=== PATIENT | male | born 1950 | race Caucasian/White ===

== ENCOUNTER 2018-09-02 18:41 | Emergency (ER) | payer MEDICARE, BC ==
--- NOTE | 2018-09-02 19:00 | Emergency Department Record ---
History of Present Illness - General Chief Complaint: Fall Injury Stated Complaint: FALL INJURY Time Seen by Provider: 09/02/18 18:53 Source: Family Mode of Arrival: Wheelchair Limitations: No limitations - History of Present Illness Initial Comments: 67 yo male presents to ED for evaluation following falls x 2 today and generalized weakness. 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 Patient is also recovering from c. diff colitis. Family reports that the patient was released 2 weeks ago from [facility] following hospitalization and had been doing well until this morning. Family also reports garbled speech this morning that has since resolved. MD Complaint: Fall Onset/Timin -: Days(s) Fall From: Standing Fall Witnessed: No Place Fall Occurred: Home Loss of Consciousness: Unsure Prolonged Down Time?: No - Lisseth Coma Scale Eye Response: (4) Open spontaneously Motor Response: (6) Obeys commands Verbal Response: (5) Oriented Lisseth Total: 15 - Related Data Allergies Allergy/AdvReac Type Severity Reaction Status Date / Time Penicillins Allergy ANAPHYLAXIS Verified 09/02/18 19:11 Review of Systems Constitutional: Reports: Malaise, Weakness. Denies: Chills, Fever, Night sweats Eyes: Denies: Eye discharge, Eye pain ENT: Denies: Congestion, Ear pain, Epistaxis Respiratory: Denies: Cough, Dyspnea Cardiovascular: Denies: Chest pain, Dyspnea on exertion Endocrine: Reports: Fatigue. Denies: Heat or cold intolerance Gastrointestinal: Denies: Abdominal pain, Vomiting Genitourinary: Denies: Incontinence, Retention Musculoskeletal: Denies: Arthralgia, Back pain, Gout, Joint swelling Skin: Denies: Bruising, Change in color Neurological: Denies: Headache Psychiatric: Denies: Anxiety Hematological/Lymphatic: Denies: Anemia, Blood Clots Physical Exam - General General Appearance: Alert, Oriented x3, Cooperative, Moderate distress ( chronically ill-appearing on examination) - Head Head exam: Atraumatic, Normocephalic, Normal inspection Head exam detail: negative: Abrasion, Contusion, Mckeon's sign, General tenderness, Hematoma, Laceration - Eye Eye exam: Normal appearance. negative: Conjunctival injection, Periorbital swelling, Periorbital tenderness, Scleral icterus - ENT Ear exam: negative: Auricular hematoma, Auricular trauma Nasal Exam: negative: Active bleeding, Discharge, Dried blood, Foreign body Mouth exam: negative: Drooling, Laceration, Muffled voice, Tongue elevation - Neck Neck exam: Normal inspection. negative: Tenderness - Respiratory Respiratory exam: Normal lung sounds bilaterally. negative: Respiratory distress, Rhonchi, Stridor, Wheezes - Cardiovascular Cardiovascular Exam: Regular rate, Normal rhythm, Normal heart sounds - GI/Abdominal GI/Abdominal exam: Soft. negative: Rebound, Rigid, Tenderness - Rectal Rectal exam: Deferred - exam: Deferred - Extremities Extremities exam: Other (Abrasion right knee). negative: Calf tenderness, Pedal edema, Tenderness - Back Back exam: Denies: CVA tenderness (R), CVA tenderness (L) - Neurological Neurological exam: Alert, Oriented X3, Other (Elementary Math Tutor strength 5/5 and symmetric bilaterally, dorsiflexion 5/5 and symmetric without pain symptoms, no clinical signs for CVA on examination.). negative: Motor sensory deficit - Psychiatric Psychiatric exam: Normal affect, Normal mood - Skin Skin exam: Normal color Course - Reevaluation(s) Reevaluation #1: 09/02/18 19:51 Laboratory studies reviewed and are grossly unremarkable for an acute process. Patient currently in imaging. EKG: NSR 59 Normal axis, normal intervals No acute ST-T wave changes Reevaluation #2: 09/02/18 20:00 Patient is back from radiology at this time, speech is now garbled, patient appears more delayed. Patient does follow commands however, no evidence for seizure on examination. Elementary Math Tutor strength on re-examination 4/5 and symmetric bilaterally UEs, EOMs intact, however speech is affected. Patient is NOT a tPA candidate based on his current brain lesion history. Reevaluation #3: 09/02/18 20:04 CT Brain: Encephalomalacia front white matter with area of isodensity, cannot exclude re- occurence Post-craniotomy changes left frontal CT Cervical Spine: Multi-level DDD NO acute traumatic injury identified. CT Chest w/o contrast Mild pleural effusions bilaterally No pneumothorax Mild RLL atelectasis vs. infiltrate. CT Abdomen and Pelvis: No acute traumatic injury Right knee: STS, no acute fracture or dislocation present. Reevaluation #4: 09/02/18 20:22 Case was discussed with Dr. Acosta ([facility]) Reevaluation #5: 09/02/18 20:41 While awaiting EMD arrival, patient had a witnessed seizure lasting approximately 70 seconds, Ativan ordered to infuse. contacted for an updated as well. Seizure precautions instituted. No IV Keppra available. 09/02/18 21:05 Decadron 10 mg IV ordered for possible re-occurrence of glioblastoma with possible edema. Awaiting EMS. Patient is drowsy, easily awakens to first name, opens eyes, follows commands. 09/02/18 21:11 EMS is present for transfer. Medical Decision Making - Lab Data Result diagrams: 09/02/18 18:59 09/02/18 18:59 Critical Care Time Critical Care Time: Yes Total Critical Care Time: 60 Critical Care Time: Evaluation for Trauma/Possible CVA, evaluation as a possible tPA candidate, treatment of seizure, administration of Decadron for possible glioblastoma reoccurrence, frequent reassessments and updating of family members at the bedside. Disposition Disposition: Transfer Clinical Impression: Garbled speech, Glioblastoma, Grand mal seizure Fall Qualifiers: Encounter type: initial encounter Qualified Code(s): W19.XXXA - Unspecified fall, initial encounter Disposition: Acute Care Hospital Transfer Transfer To: [facility] Reason For Transfer: Neuro deficits Accepting Physician: Karla Time Discussed w/Accepting Physician: 20:17 Condition: (2) Stable Forms: Patient Portal Access Time of Disposition: 20:17 Quality - Quality Measures Quality Measures: N/A - Blood Pressure Screening Does Patient Have Any of the Following: Active Dx of HTN Blood Pressure Classification: Hypertensive Reading Systolic Measurement: 171 Diastolic Measurement: 95 Screening for High Blood Pressure: Patient Exclusion, Hx of HTN [G9744]
[2018-09-02 19:08] LABS: BASO % 0.2 % (0-6); EOS % 0.3 % (0-6); GRAN % 72.7 % (47-80); HEMATOCRIT 38.2 % (42.0-52.0); HEMOGLOBIN 12.7 gm/dl (14.0-18.0); LYMPH % 12.9 % (16-45); MEAN CELL VOLUME 97.7 fl (81-97); MEAN CORPUSCULAR HGB CONC 33.2 g/dl (32-36); MEAN PLATELET VOLUME 9.9 fl (7.4-10.4); MONO % 13.9 % (0-9); PLATELET COUNT 131 K/uL (130-400); RED BLOOD COUNT 3.91 M/uL (4.40-5.70); WHITE BLOOD COUNT W/O DIFF 9.3 K/uL (4.2-12.2)
[2018-09-02 19:15] LABS: MEAN CORPUSCULAR HEMOGLOBIN 32.4 pg (27-33)
[2018-09-02 19:21] LABS: BLOOD UREA NITROGEN 8 mg/dL (8-23)
[2018-09-02 19:22] LABS: CREATININE 0.6 mg/dL (0.7-1.2); EST GLOMERULAR FILTRATION RATE > 60 mL/min; TOTAL PROTEIN 6.3 g/dL (6.6-8.7)
[2018-09-02 19:24] LABS: GLUCOSE,RANDOM 99 mg/dL (74-109)
[2018-09-02 19:27] LABS: ALB/GLOB RATIO 1.4 (1.1-1.8); ALBUMIN 3.7 g/dL (4.0-5.0); ALKALINE PHOSPHATASE 88 U/L (40-129); ALT/SGPT 31 U/L (<41); AST/SGOT 21 U/L (10.0-50.0); CREATINE PHOSPHOKINASE 42 U/L (39-308)
[2018-09-02] MEDS: 0.9 % SODIUM CHLORIDE 1000ML 500 ML IV SCH (19:30)
[2018-09-02 20:32] LABS: URINE APPEARANCE CLEAR; URINE BILIRUBIN NEGATIVE (NEGATIVE); URINE BLOOD MODERATE (NEGATIVE); URINE COLOR YELLOW; URINE GLUCOSE (UA) NEGATIVE (NEGATIVE); URINE KETONE NEGATIVE (NEGATIVE); URINE LEUKOCYTE ESTERASE NEGATIVE (NEGATIVE); URINE NITRITE NEGATIVE (NEGATIVE); URINE PROTEIN NEGATIVE (NEGATIVE); URINE UROBILINOGEN 0.2 E.U./dL (0.20 - 1.00)
[2018-09-02] MEDS: LORAZEPAM 2 MG/ML VIAL IV ONE (20:36)
[2018-09-02 20:44] LABS: URINE EPITHELIAL CELLS NONE SEEN (FEW); URINE RBC 0 - 2 (NONE SEEN); URINE WBC NONE SEEN (0-2/hpf)
[2018-09-02] MEDS: DEXAMETHASONE SOD PHOSPHATE 10MG/ML VIAL IVP ONE (21:08)
--- NOTE | 2018-09-05 09:46 | CT SCAN REPORT ---
EXAM: CT SCAN OF THE CHEST HISTORY: PATIENT HAS A HISTORY OF FALL. TECHNIQUE: Serial axial CT scan of the chest was performed at 3.75 mm intervals from the thoracic inlet to the dome of the diaphragm without the use of intravenous contrast. No comparison CT's are available. FINDINGS: The thoracic inlet is unremarkable. The lung windows demonstrate mild bilateral pleural effusions, right greater than left. No pneumothorax is noted. Mild right posterior lower lobe passive atelectasis and/or infiltrate is noted. There is a nonspecific 4 mm nodule within the left upper lobe. Follow-up CT scan of the chest can be obtained in six months to document stability of finding. The visualized heart size and contour is within normal limits. The thoracic aorta demonstrates normal contour and caliber. There is no CT evidence of mediastinal, hilar, or axillary lymphadenopathy. Bone windows demonstrate no CT evidence of a fracture or dislocation of the visualized osseous structures. Axial images through the upper abdomen demonstrates the visualized liver, spleen , and adrenal glands to be unremarkable. IMPRESSION: 1. MILD BILATERAL PLEURAL EFFUSIONS ARE NOTED. MILD RIGHT POSTERIOR LOWER LOBE PASSIVE ATELECTASIS AND/OR INFILTRATE IS NOTED. FOLLOW-UP PA AND LATERAL VIEWS OF THE CHEST CAN BE OBTAINED UNTIL RESOLUTION OF FINDINGS. NO PNEUMOTHORAX IS NOTED. 2. NO CT EVIDENCE OF A FRACTURE OR DISLOCATION OF THE VISUALIZED OSSEOUS STRUCTURES. MILD BILATERAL PLEURAL EFFUSIONS ARE NOTED. NO PNEUMOTHORAX IS NOTED. MILD RIGHT POSTERIOR LOWER LOBE PASSIVE ATELECTASIS AND/OR INFILTRATE IS NOTED. THERE IS NO CT EVIDENCE OF A FRACTURE OR DISLOCATION OF THE VISUALIZED OSSEOUS STRUCTURES OF THE CHEST. JOB NUMBER: [id number] [facility]
--- NOTE | 2018-09-05 09:48 | CT SCAN REPORT ---
DATE: 09/02/2018. EXAM: CT SCAN OF THE HEAD. HISTORY: The patient has a history of a fall. The patient has a history of glioblastoma with recent surgery. TECHNIQUE: Serial axial CT scan of the head was performed at 2.5-mm intervals from the base of the skull to the apex without the use of intravenous contrast. Sagittal and coronal reconstruction views are provided. COMPARISON: No comparison CTs are available. FINDINGS: The ventricles, cisterns, and sulci demonstrate normal contour, size , and attenuation. Within the left frontal white matter adjacent to the corpus callosum, there is a 3.5 cm in AP dimension x 1.6 cm in transverse dimension focus of decreased attenuation. This area extends into the corpus callosum. There is mild, isodense attenuation within this area. This finding may be the result of encephalomalacia. The area of isodense tissue within this lesion may represent recurrent neoplastic process. MRI of the brain with and without the use of intravenous gadolinium can be obtained for further evaluation. Post-craniotomy changes are identified within the left frontal skull. There is curvilinear increased density identified within the dura just in this region which may represent dural calcifications. No obvious midline shift is noted. No significant intra- or extra-axial fluid is noted to suggest acute bleeding. There is an 8.7 mm hypodensity within the left theo suggesting chronic lacunar infarct. An area of encephalomalacia involving the left occipital cortex suggests an old infarct. There is mild vasogenic-appearing edema identified within the left frontal subcortical white matter which may be the result of radiation therapy. Similar appearance is noted within the right frontal subcortical white matter. The paranasal sinuses are unremarkable. IMPRESSION: 1. AREA OF ENCEPHALOMALACIA IS NOTED WITHIN THE LEFT FRONTAL WHITE MATTER EXTENDING INTO THE CORPUS CALLOSUM ANTERIORLY. THIS FINDING MAY BE THE RESULT OF POSTOPERATIVE CHANGES. ISODENSE TISSUE IS ALSO IDENTIFIED WITHIN THIS AREA. NEOPLASTIC RECURRENCE CANNOT BE EXCLUDED. MRI OF THE BRAIN WITH AND WITHOUT THE USE OF INTRAVENOUS GADOLINIUM IS RECOMMENDED FOR FURTHER EVALUATION. 2. ENCEPHALOMALACIA WITHIN THE LEFT OCCIPITAL CORTEX AND SMALL, CHRONIC LACUNAR INFARCT WITHIN THE LEFT THEO IS IDENTIFIED. 3. POST-CRANIOTOMY CHANGES WITHIN THE LEFT FRONTAL SKULL ARE IDENTIFIED WITH CURVILINEAR INCREASED DENSITY IN THE REGION OF THE DURA IN THIS REGION. THIS FINDING IS SUSPECTED TO BE THE RESULT OF DURAL CALCIFICATIONS. NO OBVIOUS LARGE INTRACRANIAL BLEEDS ARE IDENTIFIED. IF THERE IS FURTHER CLINICAL CONCERN , THEN AN MRI OF THE BRAIN CAN BE OBTAINED FOR FURTHER EVALUATION. JOB NUMBER: [id number] [facility]
--- NOTE | 2018-09-05 09:52 | CT SCAN REPORT ---
EXAM: CT SCAN OF THE ABDOMEN AND PELVIS HISTORY: PATIENT HAS A HISTORY OF FALL. TECHNIQUE: Serial axial CT scan of the abdomen and pelvis was performed at 2.5 mm intervals from the dome of the diaphragm down to the pubic symphysis without the use of intravenous or oral contrast. No comparison CT's are available. FINDINGS: The lung windows of the lung bases demonstrate mild bilateral pleural effusions, right greater than left. Mild right posterior lower lobe passive atelectasis and/of infiltrate is noted. The visualized heart size and contour is within normal limits. The liver, spleen, adrenal glands, pancreas, and gallbladder are unremarkable. The bilateral kidneys demonstrate no CT evidence of hydronephrosis or hydroureter. No renal or ureteral calculi are noted. The contour and caliber of the noncontrasted abdominal aorta is within normal limits. There is no CT evidence of retroperitoneal, pelvic, or inguinal lymphadenopathy. The bowel gas pattern is nonspecific and nonobstructive. There is no CT evidence of free intraperitoneal fluid or free intraperitoneal air. The urinary bladder is unremarkable. Bone windows of the visualized osseous structures of the abdomen and pelvis demonstrate no CT evidence of a fracture or dislocation of the visualized osseous structures of the abdomen and pelvis. IMPRESSION: NO CT EVIDENCE OF AN ACUTE INTRAABDOMINAL PROCESS. JOB NUMBER: [id number] [facility]
--- NOTE | 2018-09-05 09:54 | CT SCAN REPORT ---
DATE: 09/02/2018. EXAM: CT SCAN OF THE CERVICAL SPINE. HISTORY: The patient has a history of a fall. TECHNIQUE: Serial axial CT scan of the cervical spine was performed at 2.5 mm intervals from the base of the skull to the apex without the use of intravenous contrast. Sagittal and coronal reconstruction views are provided. COMPARISON: No comparison CTs are available. FINDINGS: The vertebral body height, contour, and AP alignment of the cervical spine are within normal limits. There is no CT evidence of fracture or dislocation of the cervical spine. Moderate multilevel degenerative disc disease of the cervical spine is noted. The prevertebral soft tissue and parapharyngeal fat are unremarkable. The bilateral parotids, submandibular glands, and thyroid gland are unremarkable. There is no CT evidence of cervical lymphadenopathy. Airways are patent. The lung windows of the lung apices are clear. IMPRESSION: MULTILEVEL DEGENERATIVE DISC DISEASE OF THE CERVICAL SPINE IS NOTED WITHOUT CT EVIDENCE OF AN ACUTE PROCESS INVOLVING THE CERVICAL SPINE. JOB NUMBER: [id number] [facility]
--- NOTE | 2018-09-05 09:54 | RADIOLOGY REPORT ---
EXAM: RIGHT KNEE HISTORY: PATIENT HAS A HISTORY OF FALL. TECHNIQUE: Multiple views of the right knee are provided without comparison examinations. FINDINGS: There is no radiographic evidence of a fracture or dislocation of the right knee. Moderate suprapatellar bursal effusion is noted. Soft tissue swelling is noted over the patella. IMPRESSION: MODERATE SOFT TISSUE SWELLING OVER THE RIGHT KNEE WITH SUPRAPATELLAR BURSAL EFFUSION IS NOTED WITHOUT RADIOGRAPHIC EVIDENCE OF FRACTURE OR DISLOCATION OF THE RIGHT KNEE. JOB NUMBER: [id number] [facility]
== END 2018-09-02 21:24 | disposition short-term general hospital (02) ==
LOC: ER 18:41
DX: G40.409 Other generalized epilepsy and epileptic syndromes, not intractable, without status epilepticus (principal); R47.89 Other speech disturbances; J90 Pleural effusion, not elsewhere classified; R53.1 Weakness; M50.30 Other cervical disc degeneration, unspecified cervical region; M25.461 Effusion, right knee; Z85.841 Personal history of malignant neoplasm of brain; G89.11 Acute pain due to trauma; I10 Essential (primary) hypertension; W18.30XA Fall on same level, unspecified, initial encounter; Y92.009 Unspecified place in unspecified non-institutional (private) residence as the place of occurrence of the external cause
CPT/HCPCS: 70450; 71250; 72125; 74176; 80053; 81001; 82550; 83605; 84484; 85025; 93005; 93010; 96361; 96374; 96375; 99291; J7030